=== PATIENT | female | born 1995 | race Caucasian/White ===

== ENCOUNTER 2016-12-05 02:30 | Emergency (ER) | payer BC ==
[~2016-12-05] VITALS: Ht 160 cm; Wt 62.4 kg
[~2016-12-05 02:30] MED LIST: ALBU1AER9 INH; BCPILLS PO; EPP3/2 IM; MOME200A INH
[2016-12-05 02:35] VITALS: TEMP 37.1; Ht 160 cm; Wt 62.4 kg
[2016-12-05] MEDS ORDERED: ALBUT/IPRATROP 3MG/0.5MG NEB 3 ML VIAL INH STA (02:52)
[2016-12-05] MEDS ORDERED: DEXAMETHASONE SOD INJ 4 MG/ML VIAL IM ONE (03:00)
--- NOTE | 2016-12-05 03:05 | EMERGENCY ROOM VISIT NOTE ---
History First contact with patient: 02:38 Chief Complaint: RESPIRATORY PROBLEMS Stated Complaint: SHORTNESS OF BREATH,FREQUENT ASTHMA ATTACKS Nursing Triage Summary: hx asthma, reports increased difficulty breathing today. History of Present Illness The patient is a 21 year old female who presents to the Emergency Room with complaints of a possible asthma exacerbation. The patient states she has a history of asthma and has had increased chest tightness and difficulty breathing over the past 2 days. She has been using her albuterol nebulizer at home but ran out of albuterol. She also has an albuterol inhaler which she uses as needed. She does not use any daily medications or inhalers. She reports a history of a bleeding disorder which causes increased bleeding. She denies any other medical problems. She denies any pain in her chest. She has a dry cough. She does not smoke. Review of Systems A complete 10 point review of systems was reviewed with the patient with pertinent positives and negatives as per history of present illness. All else were negative. Past Medical/Surgical History Medical Problems: (1) Asthma (2) Bronchitis (3) Pneumonia Family History Cancer Hypertension Social History Smoking Status: Never Smoker Marital Status: single Housing Status: lives with roommate Occupation Status: employed, [employer] student Current/Historical Medications Scheduled Albuterol Hfa (Ventolin Hfa), 2 PUFFS INH QID Albuterol Sulf (Proventil 0.083% 2.5MG/3ML), 2.5 MG INH QID Prednisone (Prednisone), 50 MG PO DAILY Scheduled PRN Albuterol Hfa (Ventolin Hfa), 2 PUFFS INH Q6H PRN for SOB/Wheezing Epinephrine (Epipen), 0.3 MG IM UD PRN for ALLERGIC REACTION Physical Exam Vital Signs Date Time Temp Pulse Resp B/P (MAP) Pulse Ox O2 Delivery O2 Flow Rate FiO2 12/05/16 05:20 83 18 124/76 100 Nebulizer 12/05/16 04:29 75 18 73 Room Air 12/05/16 03:24 76 16 128/76 96 Room Air 12/05/16 02:35 37.1 100 20 129/86 94 Room Air Physical Exam VITALS: Vitals are noted on the nurse's note and reviewed by myself. Vital signs stable. GENERAL: This is a 21-year-old female, in no acute distress, nondiaphoretic, well-developed well-nourished. SKIN: No rashes noted. HEENT: Normocephalic. PERRLA. EOMI. Nares patent. Mucous membranes moist. Neck is supple without nuchal rigidity. HEART: Regular rate and rhythm without murmurs gallops or rubs. LUNGS: Clear to auscultation bilaterally with minimal expiratory wheezes. No retractions or accessory muscle use. NEURO: Patient was alert and oriented to person place and time. Normal sensation to light and sharp touch. Medical Decision & Procedures ER Provider Diagnostic Interpretation: CHEST X-RAY: No cardiomegaly. No pulmonary infiltrates. Bony thorax unremarkable. Medications Administered Medications (Trade) Dose Ordered Sig/Jonathon Route Start Time Stop Time Status Last Admin Dose Admin Dexamethasone Sodium Phosphate (Decadron Inj) 10 mg NOW ONCE IM 12/05/16 03:00 12/05/16 03:01 DC 12/05/16 03:03 10 MG Albuterol/ Ipratropium (Duoneb) 3 ml NOW STAT INH 12/05/16 02:52 12/05/16 02:56 DC 12/05/16 03:02 3 ML Albuterol/ Ipratropium (Duoneb) 12 ml ONE ONCE INH 12/05/16 04:00 12/05/16 04:01 DC 12/05/16 04:28 12 ML ED Course The patient was evaluated as above. Patient was medicated with a DuoNeb treatment and 10 mg Decadron IM. Chest x-ray was performed and read by radiology as above. Patient was reevaluated and had very little relief. An hour-long DuoNeb was ordered. Patient was reevaluated and felt much better. Discharge instructions were reviewed with the patient. The patient verbalized understanding of my assessment and treatment plan and was discharged home in good condition. Medical Decision Differential diagnosis includes upper respiratory infection, pneumonia, asthma exacerbation, pulmonary embolism, among others. The patient is a 21-year-old female who presents today complaining of asthma exacerbation. Chest x-ray showed no acute disease. Patient is afebrile and not tachycardic. Oxygen saturation's remained in the high 90s. She was treated with DuoNeb treatments with good relief of her symptoms. She will be placed on prednisone. She was given refills of her albuterol sulfa and Proair inhaler. She was instructed [facility] or return to the emergency department for any worsening or new/ concerning symptoms. Based on the patient's presentation and work up, I feel the patient is stable for outpatient treatment. The patient was educated to return to the emergency department for any worsening of their current condition or new/concerning symptoms. She will follow up with [facility]. Medication Reconcilliation Current Medication List: was personally reviewed by me Blood Pressure Screening Patient's blood pressure: Normal blood pressure Impression Primary Impression: Asthma exacerbation Departure Information Dispostion Home / Self-Care Condition GOOD Prescriptions Prednisone (Prednisone) 50 Mg Tab 50 MG PO DAILY for 4 Days, #4 TAB Prov: Zohra Zapata PA-C 12/05/16 Albuterol Sulf (PROVENTIL 0.083% 2.5MG/3ML) 2.5 Mg/3 Ml Nebu 2.5 MG INH QID, #12 EA Prov: Zohra Zapata PA-C 12/05/16 Albuterol Hfa (VENTOLIN HFA) 200 Puffs/52132 Mcg Aers 2 PUFFS INH QID, #1 INHALER 1 Refill Prov: Zohra Zapata PA-C 12/05/16 Referrals [facility] (PCP) Patient Instructions My [facility] Additional Instructions Prednisone as prescribed. Continue the nebulizer treatments at home as needed for shortness of breath. You should take a daily antihistamine such as Claritin or Zyrtec. Follow-up with your primary care provider or [facility] services. Return to the emergency with worsening shortness of breath, chest pain or any other new/concerning symptoms.
[2016-12-05] MEDS ORDERED: VNTHFA/IN INH ×2 (03:40→05:24)
[2016-12-05] MEDS ORDERED: ALBUT/IPRATROP 3MG/0.5MG NEB 3 ML VIAL INH ONE (04:00)
[2016-12-05 04:29] VITALS: PULSE 75; O2SAT 73
[2016-12-05 05:20] VITALS: BP 124/76; PULSE 83; O2SAT 100
[2016-12-05] MEDS ORDERED: ALBINS/ INH (05:24)
[2016-12-05] MEDS ORDERED: PRED50TA PO (05:24)
--- NOTE | 2016-12-05 07:06 | DIAGNOSTIC IMAGING REPORT ---
CHEST 2 VIEWS ROUTINE HISTORY: cough, sob, asthma exacerbation COMPARISON: None. FINDINGS: The lungs are clear. Cardiac silhouette is normal in size. No pleural effusions. No pneumothorax. IMPRESSION: No acute process. Electronically signed by: Nilson Sow M.D. 12/05/2016 7:05 AM Dictated Date/Time: 12/05/2016 7:04 AM
== END 2016-12-05 05:38 | disposition home or self-care (01) ==
LOC: C.EDB 02:31
DX: J45.901 Unspecified asthma with (acute) exacerbation (principal); D68.9 Coagulation defect, unspecified; Z82.49 Family history of ischemic heart disease and other diseases of the circulatory system

== ENCOUNTER 2017-01-10 00:53 | Emergency (ER) | payer BC ==
[~2017-01-10] VITALS: Ht 160 cm; Wt 62.0 kg
[~2017-01-10 00:53] MED LIST changes: +ALBINS/ INH; -ALBU1AER9 INH; -BCPILLS PO; -MOME200A INH; +VNTHFA/IN INH
[2017-01-10 00:58] VITALS: Ht 160 cm; Wt 62.0 kg
--- NOTE | 2017-01-10 01:51 | EMERGENCY ROOM VISIT NOTE ---
History Report prepared by Shaw: Jose Roberto Dukes Under the Supervision of: Dr. Lizeth Sprague M.D. First contact with patient: 01:01 Chief Complaint: FOREIGNBODY ANY BODY PART Stated Complaint: TAMPON POSSIBLY STUCK IN VAGINA,FEELING SICK History of Present Illness The patient is a 21 year old female who presents to the Emergency Room with complaints of constant vaginal discomfort beginning this morning. The patient states she is currently on her menstrual period, and she put a tampon in before she went to bed 24 hours ago. She reports she woke up, and she could not find it. The patient notes she went to the restroom, and it was not in the toilet. She states she showered, and she was able to pull a few bits of cotton out of her vagina, but she could not see the string to the tampon. The patient reports she tried to feel if it was still stuck in her vagina, but she could not. She notes she had to go to class, so she inserted a second tampon into her vagina because she did not have pads. The patient states she has been feeling weird all day, and she experienced a subjective fever. She reports she has been around people who were sick. The patient denies vaginal discharge and having intercourse last night. Source of History: patient Onset: this morning Position: other (vagina) Quality: other (discomfort) Timing: constant Associated Symptoms: + fevers Note: Denies: vaginal discharge and intercourse last night Review of Systems See HPI for pertinent positives & negatives. A total of 10 systems reviewed and were otherwise negative. Past Medical & Surgical Medical Problems: (1) Asthma (2) Bronchitis (3) Pneumonia Family History Cancer Hypertension Social History Smoking Status: Never Smoker Marital Status: single Housing Status: lives with roommate Occupation Status: employed, [employer] student Current/Historical Medications Scheduled PRN Albuterol Hfa (Ventolin Hfa), 2 PUFFS INH Q6H PRN for SOB/Wheezing Epinephrine (Epipen), 0.3 MG IM UD PRN for ALLERGIC REACTION Allergies Coded Allergies: BEE STING (Verified Allergy, Intermediate, anaphylaxis, 01/10/17) Ibuprofen (Verified Allergy, Intermediate, platelet disorder, 01/10/17) Nut Tree (Verified Allergy, Intermediate, anaphylaxis, has epi pen, ) Peanut (Verified Allergy, Intermediate, has epi pen, anaphylaxis., 01/10/17 ) Physical Exam Vital Signs Date Time Temp Pulse Resp B/P (MAP) Pulse Ox O2 Delivery O2 Flow Rate FiO2 01/10/17 01:52 36.8 65 18 115/72 98 01/10/17 00:58 37.0 69 18 112/72 98 Room Air Physical Exam Vital signs reviewed. General: Well-appearing 21 year old female, in no significant distress. Abdomen: Soft, nontender, nondistended, positive bowel sounds. Pelvic: Tampon string seen at the introitus. Normal external female genitals, moderate amounts of dark red blood in the vaginal vault, cervix is palpated and non-tender, no retained foreign body. Musculoskeletal: Atraumatic, no peripheral edema. Neurologic: Patient awake alert and oriented x 3 Skin: Warm, dry, no rash Medical Decision & Procedures ED Course 0134: Past medical records reviewed. The patient was evaluated in room A12B. A complete history and physical examination was performed. I discussed the exam findings with the patient, as well as the discharge instructions. The patient verbalized complete agreement and understanding. She was discharged home. Medical Decision This patient was evaluated and appeared to be in no significant distress. Pelvic exam was performed and a tampon string was evaluated at the vaginal introitus. This was removed. This is apparently the second tampon that the patient felt she had placed today. There is a moderate amount of blood in the vaginal canal. There is no additional foreign body appreciated on speculum exam as well as manual exam. Patient was informed of the findings. She was reassured and discharged follow-up with [facility] if symptoms continue. She will return to the ER for any medical concerns. Impression Primary Impression: No foreign body found on evaluation Scribe Attestation The scribe's documentation has been prepared under my direction and personally reviewed by me in its entirety. I confirm that the note above accurately reflects all work, treatment, procedures, and medical decision making performed by me. Departure Information Dispostion Home / Self-Care Referrals No Doctor, Assigned (PCP) Forms HOME CARE DOCUMENTATION FORM, IMPORTANT VISIT INFORMATION, WORK / SCHOOL INSTRUCTIONS Patient Instructions My [facility] Additional Instructions Diagnosis: Foreign body evaluation Follow up with your doctor if symptoms or any medical concerns. Return to the ED for worsening of symptoms or any medical concerns.
[2017-01-10 01:52] VITALS: BP 115/72; PULSE 65; TEMP 36.8; O2SAT 98
== END 2017-01-10 01:53 | disposition home or self-care (01) ==
LOC: C.EDB 00:55 → C.EDA 01:53
DX: Z03.89 Encounter for observation for other suspected diseases and conditions ruled out (principal); J45.909 Unspecified asthma, uncomplicated; Z87.01 Personal history of pneumonia (recurrent); Z80.9 Family history of malignant neoplasm, unspecified; Z82.49 Family history of ischemic heart disease and other diseases of the circulatory system